=== PATIENT | male | born 1980 | race Caucasian/White ===

== ENCOUNTER 2019-05-05 16:05 | Emergency (ER) | payer SELFPAY ==
[~2019-05-05] VITALS: Ht 172.7 cm; Wt 60.0 kg
[~2019-05-05 16:05] MED LIST: AMOXICILLIN500 MG OR; BACTRIM DS1 TAB PO; CIPRO500 MG OR; LORTAB 10 PO; NO HOME MEDS PER PT; PERCOCET 5/325M1 TAB OR
[2019-05-05 17:50] VITALS: BP 121/80
== END 2019-05-05 17:50 | disposition left against medical advice (07) | DRG 999 ==
LOC: ED 16:05
DX: S02.82XA Fracture of other specified skull and facial bones, left side, initial encounter for closed fracture (principal); S02.19XA Other fracture of base of skull, initial encounter for closed fracture; S02.2XXA Fracture of nasal bones, initial encounter for closed fracture; S50.312A Abrasion of left elbow, initial encounter; S00.511A Abrasion of lip, initial encounter; S00.31XA Abrasion of nose, initial encounter; F17.210 Nicotine dependence, cigarettes, uncomplicated; V18.0XXA Pedal cycle driver injured in noncollision transport accident in nontraffic accident, initial encounter; Y93.55 Activity, bike riding; Z91.19 Patient's noncompliance with other medical treatment and regimen